=== PATIENT | male | born 1985 | race Caucasian/White ===

== ENCOUNTER 2018-03-22 11:59 | Emergency (ER) | payer OTHER ==
[~2018-03-22] VITALS: Ht 188 cm; Wt 86.2 kg
[2018-03-22] MEDS ORDERED: Percocet 7.5-31 EACH PO (13:57)
== END 2018-03-22 14:14 | disposition home or self-care (01) ==
LOC: ER 11:59
DX: S62.231A Other displaced fracture of base of first metacarpal bone, right hand, initial encounter for closed fracture (principal); W19.XXXA Unspecified fall, initial encounter; F17.200 Nicotine dependence, unspecified, uncomplicated
CPT/HCPCS: 29125; 73140; 99283